=== PATIENT | female | born 1975 ===

== ENCOUNTER 2017-07-17 10:30 | Inpatient (IN) | payer OTHER ==
[~2017-07-17] VITALS: Ht 154.9 cm; Wt 54.4 kg
[2017-07-17] MEDS ORDERED: CENTRUM ADULTS1 EACH PO (13:08)
== END 2017-07-26 14:06 | disposition home or self-care (01) | DRG 742 ==
LOC: EDSTATUS 10:30 → ADM 10:30 → O/R 10:30 → OB/GYN 07-25 12:40
PROVIDERS: Obstetrics & Gynecology Gynecologic Oncology
PROC: 0TBB4ZZ Excision of Bladder, Percutaneous Endoscopic Approach (ICD-10-PCS; 2017-07-24)
PROC: 0TQB4ZZ Repair Bladder, Percutaneous Endoscopic Approach (ICD-10-PCS; 2017-07-24)
PROC: 0DNW4ZZ Release Peritoneum, Percutaneous Endoscopic Approach (ICD-10-PCS; 2017-07-24)
PROC: 0TNB4ZZ Release Bladder, Percutaneous Endoscopic Approach (ICD-10-PCS; 2017-07-24)
PROC: 0UT74ZZ Resection of Bilateral Fallopian Tubes, Percutaneous Endoscopic Approach (ICD-10-PCS; 2017-07-24)
PROC: 0TJB8ZZ Inspection of Bladder, Via Natural or Artificial Opening Endoscopic (ICD-10-PCS; 2017-07-24)
PROC: 0UT94ZZ Resection of Uterus, Percutaneous Endoscopic Approach (ICD-10-PCS; principal; 2017-07-24 13:00)
DX: N93.8 Other specified abnormal uterine and vaginal bleeding (principal); N99.71 Accidental puncture and laceration of a genitourinary system organ or structure during a genitourinary system procedure; N73.6 Female pelvic peritoneal adhesions (postinfective)